=== PATIENT | male | born 1955 | race Caucasian/White ===

== ENCOUNTER 2022-12-12 07:10 | Outpatient (CLI) | payer BC ==
[2022-12-12] MEDS ORDERED: GADOBUTROL 15 MMOL/15 ML VIAL ONE (07:19)
[2022-12-12 07:31] LABS: CREATININE 0.9 mg/dL (0.6-1.2)
[2022-12-12] MEDS ORDERED: GADOBUTROL 15 MMOL/15 ML VIAL IVP ONE (12:55)
--- NOTE | 2022-12-12 14:15 | MRI Report ---
PROCEDURE: PELVIS W/WO INDICATIONS: ELEVATED PSA CONTRAST: MultiHance TECHNIQUE: Coronal ultra fast SE, axial T1 FSE with fat saturation, 3-plane nonbreath-hold T2 FSE. After the ad ministration of contrast, dynamic axial, delayed axial and coronal ultra fast GE or 2-D spoiled GE wi th fat saturation through the pelvis. Optional diffusion weighted imaging and ADC may be performed. COMPARISON: None. FINDINGS: Image quality: Diffusion weighted and dynamic contrast enhanced images are diagnostic. Prostate: Gland size is 6.2 x 5.2 x 4.8 cm; ellipsoid gland volume is 80 mL. No PI-RADS 3-5 lesions. Genitourinary system: Related bladder wall. Mild dilation of the ureters. Bowel and peritoneum: No pathologic free pelvic fluid. Inferior colon and small bowel loops are nor mal in caliber. Nodes and vessels: No pelvic or inguinal adenopathy by size criteria. Iliac vessels are normal in c aliber. Soft tissues: Small, fat-containing inguinal hernias. Bones: Bone marrow demonstrates normal overall signal. No suspicious bony lesions. IMPRESSION: Prostatomegaly. No PIRADS 3-5 lesions. Reviewed by: Shaw Edge on 12/12/2022 2:13 PM PDT Approved by: Shaw Edge on 12/12/2022 2:13 PM PDT Station ID: [id number]
== END 2022-12-12 07:11 | disposition home or self-care (01) ==
LOC: LAB 07:10
PROVIDERS: ATTEND Physician Assistant Medical
DX: R97.20 Elevated prostate specific antigen [PSA] (principal); R39.15 Urgency of urination; R35.0 Frequency of micturition; N40.0 Benign prostatic hyperplasia without lower urinary tract symptoms
CPT/HCPCS: 36415; 72197; 82565; A9585

== ENCOUNTER 2023-11-04 10:28 | Outpatient (CLI) | payer BC ==
--- NOTE | 2023-11-06 09:48 | MRI Report ---
PROCEDURE: Lumbar Spine WO INDICATIONS: LUMBAR BACK PAIN TECHNIQUE: Noncontrast sagittal T1 spin echo and T2 fast echo, sagittal STIR, axial T1 and T2 fast spin echo thr ough the lumbar spine. In cases with scoliosis, additional coronal T2 fast spin echo may be performe d. COMPARISON: None. FINDINGS: Image quality: Excellent. Alignment and Curvature: Remote posterior decompressive laminectomy at L4-L5 and L5-S1. Anterolisthes is at L3-L4 measures 8 mm. Bone Marrow: Marrow is of normal overall signal. No acute vertebral body compression fractures. Spinal Cord: Conus medullaris terminates at the L1-L2 level. Visualized cord demonstrates normal si gnal and size. Paraspinous Soft Tissues: No paravertebral masses. T12-L1: No canal stenosis or foraminal stenosis. L1-L2: Disc bulge. Facet hypertrophy. No canal stenosis at the level of the disc. There is an acut e or subacute very large left paracentral inferior disc extrusion behind the L2 vertebral body which measures 2.4 x 1.0 x 1.0 cm. It obliterates the left L2 nerve root in the left lateral recess. It occ urs below the exiting left L1 nerve root. It impinges on multiple left-sided nerve root structures in the thecal sac. Reference sagittal T2 image 11 of series 2 as well as axial T2 image 19 of series 6. L2-L3: Mild disc height loss. Disc bulge. Facet hypertrophy. Epidural lipomatosis. Mild to moderat e canal stenosis. No significant foraminal stenosis. L3-L4: Mild disc height loss. 8 mm anterolisthesis of L3 on L4. Facet hypertrophy. Moderate canal s tenosis. Moderate bilateral foraminal stenosis with mild flattening deformity on the exiting bilatera l L3 nerve roots. L4-L5: Remote posterior decompression. Facet hypertrophy. No canal stenosis. Mild to moderate bilat eral foraminal stenosis. L5-S1: Remote posterior decompression. No canal stenosis. Facet hypertrophy. Mild right foraminal n arrowing and mild to moderate left foraminal narrowing.. IMPRESSION: 1. There is a acute or subacute very large left paracentral inferior disc extrusion at L1-L2 which ob literates the left L2 nerve root behind L2, and impinges on multiple left-sided nerve root structures in the thecal sac. 2. Remote posterior decompression at L4-L5 and L5-S1. 3. There is mild to moderate canal stenosis at L2-L3 and moderate canal stenosis at L3-L4. 4. Multilevel foraminal narrowing as described above. Findings include moderate bilateral foraminal n arrowing at L3-L4. Reviewed by: Chilo Hammond MD on 11/06/2023 9:46 AM PDT Approved by: Chilo Hammond MD on 11/06/2023 9:46 AM PDT Station ID: [id number]
== END 2023-11-04 10:29 | disposition home or self-care (01) ==
LOC: DI 10:28
PROVIDERS: ATTEND Nurse Practitioner Family
DX: M51.16 Intervertebral disc disorders with radiculopathy, lumbar region (principal); M48.061 Spinal stenosis, lumbar region without neurogenic claudication; M47.816 Spondylosis without myelopathy or radiculopathy, lumbar region; M47.817 Spondylosis without myelopathy or radiculopathy, lumbosacral region; M48.07 Spinal stenosis, lumbosacral region

== ENCOUNTER 2024-02-10 17:09 | Outpatient (CLI) | payer BC | END 2024-02-10 17:10 | disposition short-term general hospital (02) | LOC: EMS 17:09 | DX: R55 Syncope and collapse (principal); S50.311A Abrasion of right elbow, initial encounter; S80.211A Abrasion, right knee, initial encounter; W18.39XA Other fall on same level, initial encounter; Y93.89 Activity, other specified; Y92.89 Other specified places as the place of occurrence of the external cause | CPT/HCPCS: A0425; A0427 ==

== ENCOUNTER 2024-03-11 12:19 | Outpatient (CLI) | payer BC, MEDICARE | END 2024-03-11 23:59 | disposition short-term general hospital (02) | LOC: EMS 12:19 | DX: R07.89 Other chest pain (principal); R00.0 Tachycardia, unspecified | CPT/HCPCS: A0425; A0427 ==